=== PATIENT | female | born 1970 | race Hispanic/Latino ===

== ENCOUNTER 2017-07-26 20:31 | Emergency (ER) | payer SELFPAY ==
[~2017-07-26] VITALS: Ht 157.5 cm; Wt 99.5 kg
[~2017-07-26 20:31] MED LIST: BACTRIM DS1 TAB PO
[2017-07-26] MEDS ORDERED: AMOXICILLIN500 MG PO (21:07)
[2017-07-26 21:20] VITALS: BP 115/56
== END 2017-07-26 21:46 | disposition home or self-care (01) | DRG 605 ==
LOC: ED 20:31
PROC: 0HQNXZZ Repair Left Foot Skin, External Approach (ICD-10-PCS; principal; 2017-07-26)
DX: S91.332A Puncture wound without foreign body, left foot, initial encounter (principal); W61.33XA Pecked by chicken, initial encounter